=== PATIENT | male | born 1970 | race African-American/Black ===

== ENCOUNTER 2017-02-11 17:26 | Emergency (ER) | payer OTHER ==
[~2017-02-11 17:26] MED LIST: PHENERGAN25 M1 PO
[2017-02-11 17:46] LABS: INFLUENZA A NEG (NEG); INFLUENZA B NEG (NEG)
== END 2017-02-11 18:03 | disposition home or self-care (01) ==
LOC: CED 17:26
PROVIDERS: Physician Assistant
DX: J02.0 Streptococcal pharyngitis (principal); F17.210 Nicotine dependence, cigarettes, uncomplicated
CPT/HCPCS: 87651; 87804; 96372; 99283; J0561